=== PATIENT | female | born 1955 | race Caucasian/White ===

== ENCOUNTER 2017-02-06 18:50 | Emergency (ER) | payer OTHER ==
[2017-02-06 18:55] VITALS: BP 149/62
--- NOTE | 2017-02-06 20:11 | RAD ---
INDICATION: Right wrist injury. TECHNIQUE: 3 views of the right wrist were obtained. FINDINGS: There is dorsal lateral soft tissue swelling. There is a comminuted fracture of the distal radial metaphysis. A component of the fracture extends to the distal articular margin. The fracture fragments are slightly impacted. No other fractures are seen. IMPRESSION: COMMINUTED SLIGHTLY IMPACTED INTRA-ARTICULAR FRACTURE OF THE DISTAL RADIUS.
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
== END 2017-02-06 21:05 | disposition home or self-care (01) ==
LOC: ED 18:50
DX: S52.501A Unspecified fracture of the lower end of right radius, initial encounter for closed fracture (principal); Y92.9 Unspecified place or not applicable; Y93.9 Activity, unspecified; W19.XXXA Unspecified fall, initial encounter; M25.531 Pain in right wrist
CPT/HCPCS: 99282

== ENCOUNTER 2021-07-09 00:31 | Observation (INO) ==
[2021-07-09] MEDS ORDERED: Ondansetron 4 mg VIAL 2 MG/ML 2 ml VIAL IV ONE (00:57)
[2021-07-09] MEDS ORDERED: Morphine 4 MG/ML VIAL (1 ml) IV ONE (01:02)
[2021-07-09 01:31] VITALS: BP 130/69
[2021-07-09] MEDS ORDERED: Lactated Ringers 1000 ml BAG 1,000 ML IV ONE (02:11)
[2021-07-09] MEDS ORDERED: Ondansetron ODT 4 mg TAB 4 MG TAB SL PRN (03:58)
[2021-07-09] MEDS ORDERED: Ondansetron 4 mg VIAL 2 MG/ML 2 ml VIAL IV PRN (03:58)
[2021-07-09] MEDS ORDERED: Morphine 2 MG/ML SYRINGE IV PRN (03:58)
[2021-07-09] MEDS ORDERED: Morphine ORAL CONCENTRATE 5 MG/0.25 ML ORAL.SYRIN SL PRN (03:58)
[2021-07-09] MEDS ORDERED: Lorazepam PYXIS KEY PRN (06:07)
[2021-07-09] MEDS ORDERED: LORazepam 2 mg VIAL 1 ml IV PUSH ONE (06:07)
== END 2021-07-09 07:11 | disposition short-term general hospital (02) ==
LOC: ED 00:31 → EDHOLD 00:31
PROVIDERS: ADMIT Internal Medicine; ATTEND Internal Medicine